=== PATIENT | male | born 1975 | race Caucasian/White ===

== ENCOUNTER 2018-09-13 19:32 | Emergency (ER) | payer MEDICAID ==
--- NOTE | 2018-09-13 20:24 | ED PDOC ---
HPI: Psych/Substance Abuse Time Seen by Provider: 09/13/18 19:40 Chief Complaint (Nursing): Alcohol Ingestion Chief Complaint (Provider): Alcohol Ingestion ED Caveat: Intoxicated History Per: Patient, EMS History/Exam Limitations: intoxication Onset/Duration Of Symptoms: Other ([employer]) Modifying Factor(s): Alcohol Additional Complaint(s): 43 y/o male with unknown pmhx brought to ER by EMS for supposed alcohol abuse. Patient was found sleeping at a bar. He admits to drinking alcohol of 3 beverages. Patient denies drug use. History is unobtainable due to patient's intoxicated state. PMD: none provided Past Medical History Reviewed: Historical Data, Nursing Documentation, Vital Signs Vital Signs: Last Vital Signs Temp 98.9 F 09/13/18 19:33 Pulse 81 09/13/18 19:33 Resp 16 09/13/18 19:33 BP 121/64 09/13/18 19:33 Pulse Ox 100 09/13/18 19:33 - Medical History Other PMH: Unknown - Surgical History Other surgeries: Unknown - Family History Family History: States: Unknown Family Hx - Social History Alcohol: Social Drugs: Denies - Immunization History Hx Tetanus Toxoid Vaccination: (UNKNOWN) Hx Influenza Vaccination: (UNKNOWN) Hx Pneumococcal Vaccination: (UNKNOWN) - Home Medications Home Medications: Ambulatory Orders Medication Instructions Recorded No Known Home Med 02/28/16 - Allergies Allergies/Adverse Reactions: Allergies Allergy/AdvReac Type Severity Reaction Status Date / Time No Known Allergies Allergy Verified 09/13/18 19:36 Review of Systems Review Of Systems: ROS cannot be obtained secondary to pt's inabilty to answer questions. Physical Exam - Reviewed Nursing Documentation Reviewed: Yes Vital Signs Reviewed: Yes - Physical Exam Appears: Positive for: No Acute Distress Head Exam: Positive for: ATRAUMATIC, NORMOCEPHALIC Skin: Positive for: Normal Color, Warm, Dry Neck: Positive for: Normal, Painless ROM, Supple Cardiovascular/Chest: Positive for: Regular Rate, Rhythm. Negative for: Murmur Respiratory: Positive for: Normal Breath Sounds. Negative for: Wheezing Gastrointestinal/Abdominal: Positive for: Normal Exam, Soft. Negative for: Tenderness Extremity: Positive for: Normal ROM. Negative for: Pedal Edema, Swelling Neurologic/Psych: Positive for: Alert, Oriented (x3), Gait (unsteady), Other (Slurred speech). Negative for: Motor/Sensory Deficits - ECG O2 Sat by Pulse Oximetry: 100 (RA) Pulse Ox Interpretation: Normal Medical Decision Making Medical Decision Making: Time: 2005 A/P: 43 y/o male with alcohol intoxication --No signs of trauma --Will monitor until sober 0000 --Resting comfortably 0300 --Resting, no changes 0530 --Awake, alert, steady gait, oriented --Stable for discharge Scribe Attestation: Documented by Isatu Freeman, acting as a scribe for Vikram Baugh MD. Provider Scribe Attestation: All medical record entries made by the Scribe were at my direction and personally dictated by me. I have reviewed the chart and agree that the record accurately reflects my personal performance of the history, physical exam, medical decision making, and the department course for this patient. I have also personally directed, reviewed, and agree with the discharge instructions and disposition. Disposition - Clinical Impression Clinical Impression: Alcohol abuse - Patient ED Disposition Is Patient to be Admitted: No - Disposition Referrals: Alcoholics Anonymous [Outside] Disposition: Routine/Home Disposition Time: 05:34 Condition: GOOD Instructions: Alcohol Use - When Is Drinking a Problem?, Alcohol Abuse and Alcoholism (DC) Forms: [facility] (Nepali) Print Language: [email or web address]
[2018-09-14 06:19] VITALS: BP 122/70; PULSE 72; RESP 16; TEMP 98.1; O2SAT 98
== END 2018-09-14 06:18 | disposition home or self-care (01) ==
LOC: H.ER 19:32
DX: F10.129 Alcohol abuse with intoxication, unspecified (principal); Y90.8 Blood alcohol level of 240 mg/100 ml or more

== ENCOUNTER 2018-10-18 21:31 | Emergency (ER) | payer SELFPAY ==
--- NOTE | 2018-10-19 01:05 | ED PDOC ---
HPI: Psych/Substance Abuse Time Seen by Provider: 10/18/18 21:53 Chief Complaint (Nursing): Alcohol Ingestion Chief Complaint (Provider): Alcohol Ingestion ED Caveat: Intoxicated History Per: EMS History/Exam Limitations: intoxication Onset/Duration Of Symptoms: Hrs Current Symptoms Are (Timing): Still Present Modifying Factor(s): Alcohol Additional Complaint(s): 43 y/o male with an unknown PMHx brought in by [facility] for evaluation of alcohol intoxication. As per Triage note, EMS report patient was drinking with friends and unable to ambulate. History obtained through EMS due to patient's intoxicated state. PMD: Unknown Past Medical History Reviewed: Historical Data, Nursing Documentation, Vital Signs Vital Signs: Last Vital Signs Temp 98 F 10/18/18 21:46 Pulse 64 10/18/18 21:46 Resp 18 10/18/18 21:46 BP 99/53 L 10/18/18 21:46 Pulse Ox 94 L 10/18/18 21:46 - Medical History PMH: No Chronic Diseases - Surgical History Surgical History: No Surg Hx - Family History Family History: States: Unknown Family Hx - Social History Alcohol: Social - Immunization History Hx Tetanus Toxoid Vaccination: (UNKNOWN) Hx Influenza Vaccination: (UNKNOWN) Hx Pneumococcal Vaccination: (UNKNOWN) - Home Medications Home Medications: Ambulatory Orders Medication Instructions Recorded No Known Home Med 02/28/16 - Allergies Allergies/Adverse Reactions: Allergies Allergy/AdvReac Type Severity Reaction Status Date / Time No Known Allergies Allergy Verified 10/18/18 21:46 Review of Systems Review Of Systems: ROS cannot be obtained secondary to pt's inabilty to answer questions. Physical Exam - Reviewed Nursing Documentation Reviewed: Yes Vital Signs Reviewed: Yes - Physical Exam Appears: Positive for: No Acute Distress Head Exam: Positive for: ATRAUMATIC, NORMOCEPHALIC Skin: Positive for: Normal Color, Warm, Dry Eye Exam: Positive for: Normal appearance, EOMI, PERRL Neck: Positive for: Normal, Painless ROM, Supple Cardiovascular/Chest: Positive for: Regular Rate, Rhythm. Negative for: Murmur Respiratory: Positive for: Normal Breath Sounds. Negative for: Respiratory Distress Gastrointestinal/Abdominal: Positive for: Normal Exam, Soft. Negative for: Tenderness Extremity: Positive for: Normal ROM. Negative for: Deformity Neurologic/Psych: Negative for: Alert (highly intoxicated), Oriented - ECG O2 Sat by Pulse Oximetry: 94 (RA) Pulse Ox Interpretation: Normal Medical Decision Making Medical Decision Making: Time: 2200 A/P: Alcohol intoxication without signs of trauma. -- Glucose, POC Time: 2253 Plan: -- Accucheck -- Alcohol Serum 600 Patient is now awake, alert, steady gait States he has to go to work at 2PM and wishes for discharge Vitals stable, well appearing Scribe Attestation: Documented by Suellen Fam, acting as a scribe for Vikram Baugh MD. Provider Scribe Attestation: All medical record entries made by the Scribe were at my direction and personally dictated by me. I have reviewed the chart and agree that the record accurately reflects my personal performance of the history, physical exam, medical decision making, and the department course for this patient. I have also personally directed, reviewed, and agree with the discharge instructions and disposition. Disposition - Clinical Impression Clinical Impression: Alcohol intoxication - Disposition Referrals: Alcoholics Anonymous [Outside] Disposition: Routine/Home Disposition Time: 07:03 Condition: GOOD Instructions: Alcohol Use - When Is Drinking a Problem? Forms: [facility] (Welsh) Print Language: SETSWANA
[2018-10-19 07:03] VITALS: O2SAT 94
[2018-10-19 07:10] VITALS: BP 112/69; PULSE 70; RESP 18; TEMP 98.3
== END 2018-10-19 06:30 | disposition home or self-care (01) ==
LOC: H.ER 21:31
DX: F10.129 Alcohol abuse with intoxication, unspecified (principal)
CPT/HCPCS: 82948; 99283; G0480